=== PATIENT | male | born 1995 | race African-American/Black ===

== ENCOUNTER 2017-08-30 23:42 | Emergency (ER) | payer OTHER ==
[2017-08-31 00:02] VITALS: BP 130/78; PULSE 91; TEMP 98; BMI 26.6
--- NOTE | 2017-08-31 00:06 | PDOC ---
History of Present Illness - General History Source: Patient, Family Exam Limitations: No Limitations - History of Present Illness Initial Comments: 08/31/17 00:30 The patient is a 22 year old male presenting with his mother, with a significant past medical history of asthma, who presents to the emergency department complaining of sore throat and fever for the last couple of days. He reports that his fever has been as high as 101.7 degrees F. He also reports that his sore throat is causing him pain when he swallows. He notes that he has been eating but decreased due to the sore throat. He also reports a dry cough associated with his chief complaint. The mother notes that the patient has not had an asthma attack in years. The patient took 2 Advils prior to presentation. The patient denies chest pain, shortness of breath, headache or dizziness. Denies chills, nausea, vomiting, diarrhea and constipation. Allergies: None Past surgical history: None reported Social History: No alcohol, tobacco or drug use reported <Ron Bright - Last Filed: 08/31/17 00:29> <Jessica Tolbert - Last Filed: 08/31/17 01:23> - General Chief Complaint: Sore Throat Stated Complaint: COLD SYMPTOMS Time Seen by Provider: 08/30/17 23:50 Past History <Ron Bright - Last Filed: 08/31/17 00:29> - Suicide/Smoking/Psychosocial Hx Smoking History: Never smoked Have you smoked in the past 12 months: No Information on smoking cessation initiated: No Hx Alcohol Use: No Drug/Substance Use Hx: No <Jessica Tolbert - Last Filed: 08/31/17 01:23> - Past Medical History Allergies/Adverse Reactions: Allergies Allergy/AdvReac Type Severity Reaction Status Date / Time No Known Allergies Allergy Verified 08/30/17 23:59 Home Medications: Ambulatory Orders Amox-Tr/K Cl [Augmentin - 875Mg Tablet] 1 tab PO BID #20 tablet 08/31/17 Review of Systems - Review of Systems Able to Perform ROS?: Yes Comments:: 08/31/17 00:30 GENERAL/CONSTITUTIONAL: (+) Fever. No chills. No weakness. HEAD, EYES, EARS, NOSE AND THROAT: (+) Sore throat. No change in vision. No ear pain or discharge. GASTROINTESTINAL: No nausea, vomiting, diarrhea or constipation. GENITOURINARY: No dysuria, frequency, or change in urination. CARDIOVASCULAR: No chest pain or shortness of breath. RESPIRATORY: (+) Cough. No wheezing, or hemoptysis. MUSCULOSKELETAL: No joint or muscle swelling or pain. No neck or back pain. SKIN: No rash NEUROLOGIC: No headache, vertigo, loss of consciousness, or change in strength/ sensation. ENDOCRINE: No increased thirst. No abnormal weight change. HEMATOLOGIC/LYMPHATIC: No anemia, easy bleeding, or history of blood clots. ALLERGIC/IMMUNOLOGIC: No hives or skin allergy. <ОльгаRon cuba Shavonne - Last Filed: 08/31/17 00:29> *Physical Exam - Vital Signs Last Vital Signs Temp Pulse Resp BP Pulse Ox 98.0 F 91 H 20 130/78 98 08/30/17 23:59 08/30/17 23:59 08/30/17 23:59 08/30/17 23:59 08/30/17 23:59 - Physical Exam Comments: 08/31/17 00:30 Constitutional: Awake, alert, oriented. No acute distress. Head: Normocephalic. Atraumatic Eyes: PERRL. EOMI. Conjunctivae are not pale. ENT: (+) Erythematous posterior pharynx with 1 white exudate on the right. Mucous membranes are moist and intact. Uvula midline. Neck: Supple. Full ROM. No lymphadenopathy. Cardiovascular: Regular rate. Regular rhythm. S1, S2 regular. Distal pulses are 2+ and symmetric. Pulmonary/Chest: No evidence of respiratory distress. Clear to auscultation bilaterally No wheezing, rales or rhonchi. Abdominal: Soft and non-distended. There is no tenderness. No rebound, guarding or rigidity. No organomegaly. No palpable masses. Good bowel sounds. Back: No CVA tenderness. Musculoskeletal: No edema. No cyanosis. No clubbing. Full range of motion in all extremities. Nocalf tenderness. Radial/pedal pulses are intact and 2+ bilaterally Skin: Skin is warm and dry. No petechiae. No purpura. Neurological: Alert and oriented to person, place, and time. Cranial nerves II -XII are grossly intact. Normal speech. Strength is grossly symmetric. No sensory deficits. Psychiatric: Good eye contact. Normal interaction, affect and behavior. <Ron Bright - Last Filed: 08/31/17 00:29> - Vital Signs Last Vital Signs Temp Pulse Resp BP Pulse Ox 98.0 F 91 H 20 130/78 98 08/30/17 23:59 08/30/17 23:59 08/30/17 23:59 08/30/17 23:59 08/30/17 23:59 <Jessica Tolbert - Last Filed: 08/31/17 01:23> Medical Decision Making - Medical Decision Making 08/31/17 00:16 I, Dr. Jessica Tolbert, DO, attest that this document has been prepared under my direction and personally reviewed by me in its entirety. I further attest, that it accurately reflects all work, treatment, procedures and medical decision -making performed by me. 22yo male presents to the ED ambulatory from home for eval of 2 days of sore throat -nonproductive cough -no rhinorrhea -no sob/cp -nontoxic in appearance no lymphadenopathy -will obtain rapid strep and monospot will give im decadron and tylenol took motrin at 10p tonight fever of 101.7 at home -no abd pain 08/31/17 01:20 strep + will start augmentin will send rx to pharmacy tylenol or motrin for fever and pain -discussed all reasons to return to the ED, has appt at 330 with pmd tomorrow. answered all questions. stable for d/c to home <Jessica Tolbert - Last Filed: 08/31/17 01:23> *DC/Admit/Observation/Transfer - Attestations Scribe Attestion: 08/31/17 00:30 Documentation prepared by Ron Bright, acting as durable medical equipment technician for Jessica Tolbert DO <Ron Bright - Last Filed: 08/31/17 00:29> - Discharge Dispostion Admit: No - Attestations Physician Attestion: 08/31/17 01:23 I, Dr. Jessica Tolbert DO, attest that this document has been prepared under my direction and personally reviewed by me in its entirety. I further attest, that it accurately reflects all work, treatment, procedures and medical decision -making performed by me. <TomaszJessica - Last Filed: 08/31/17 01:23> Diagnosis at time of Disposition: Strep pharyngitis - Discharge Dispostion Disposition: HOME Condition at time of disposition: Stable - Prescriptions Prescriptions: Amox-Tr/K Cl [Augmentin - 875Mg Tablet] 1 tab PO BID #20 tablet - Referrals Referrals: Wayne Forbes MD [Primary Care Provider] - - Patient Instructions Printed Discharge Instructions: DI for Strep Throat Additional Instructions: Please take all antibiotics as prescribed. You make take tylenol or motrin for the fever and pain. Please keep your appointment for 330p today with your PMD. Please return to the ED with any further complaints.
[2017-08-31] MEDS ORDERED: ACETAMINOPHEN 325 MG TABLET (FP) PO ONE (00:12)
[2017-08-31] MEDS ORDERED: DEXAMETHASONE SOD PHOSPHATE 10 MG/1 ML VIAL IM ONE (00:12)
[2017-08-31] MEDS ORDERED: DEXAMETHASONE SOD PHOSPHATE 10 MG/1 ML VIAL ONE (00:30)
[2017-08-31] MEDS ORDERED: ACETAMINOPHEN 325 MG TABLET (FP) ONE (00:30)
[2017-08-31] MEDS ORDERED: AMOX TR/POT CLAV 875MG/125MG TABLETS (FP) PO ONE (01:20)
[2017-08-31] MEDS ORDERED: AMOX TR/POT CLAV 875MG/125MG TABLETS (FP) ONE (01:25)
== END 2017-08-31 01:31 | disposition home or self-care (01) ==
LOC: JER 23:42
PROC: 3E033GC Introduction of Other Therapeutic Substance into Peripheral Vein, Percutaneous Approach (ICD-10-PCS; principal; 2017-08-30)
DX: J02.0 Streptococcal pharyngitis (principal)
CPT/HCPCS: 36415; 86308; 87070; 87077; 87430; 99281-25; J1100